=== PATIENT | male | born 1990 | race Hispanic/Latino ===

== ENCOUNTER 2024-04-11 12:27 | Emergency (ER) | payer MEDICAID ==
[~2024-04-11] VITALS: Ht 167.6 cm; Wt 88.9 kg
[2024-04-11 13:44] LABS: BASOPHILS # (AUTO) 0.04 K/uL (0.00-0.20); BASOPHILS % (AUTO) 0.6 % (0.0-5.0); EOSINOPHILS # (AUTO) 0.33 K/uL (0.00-0.70); EOSINOPHILS % (AUTO) 4.9 % (0.0-8.0); HEMATOCRIT 21.9 % (42-54); IMMATURE GRANULOCYTE ABSOLUTE 0.01 K/uL (0-1); LYMPHOCYTES # (AUTO) 1.6 K/uL (1.0-4.8); LYMPHOCYTES % (AUTO) 23.5 % (21.0-51.0); MEAN CORPUSCULAR HEMOGLOBIN 31.1 pg (27.0-33.0); MEAN CORPUSCULAR HGB CONC 33.8 g/dL (32.0-36.0); MONOCYTES # (AUTO) 0.4 K/uL (0.1-1.0); MONOCYTES % (AUTO) 6.2 % (3.0-13.0); NEUTROPHILS # (AUTO) 4.4 K/uL (1.8-7.7); NEUTROPHILS % (AUTO) 64.7 % (40.0-77.0); PLATELET COUNT (AUTO) 179 K/uL (130-400); RED BLOOD CELL COUNT(AUTO) 2.38 MIL/uL (4.50-6.20); RED CELL DISTRIBUTION WIDTH 13.3 % (11.0-15.5); WHITE BLOOD COUNT (AUTO) 6.7 K/uL (4.8-10.8)
[2024-04-11 13:57] LABS: ALBUMIN 3.5 g/dL (3.5-5.0); BILIRUBIN,TOTAL 0.2 mg/dL (0.2-1.0); POTASSIUM 4.8 mmol/L (3.5-5.1); TOTAL PROTEIN, SERUM 6.7 g/dL (6.0-8.3)
[2024-04-11 14:00] LABS: CREATININE 11.5 mg/dL (0.5-1.3)
[2024-04-11 15:31] VITALS: BP 152/93; PULSE 87; RESP 18; O2SAT 100
== END 2024-04-11 15:33 | disposition home or self-care (01) ==
LOC: EDH 12:27
DX: N18.6 End stage renal disease (principal); N18.9 Chronic kidney disease, unspecified; D63.1 Anemia in chronic kidney disease; Z99.2 Dependence on renal dialysis; R73.9 Hyperglycemia, unspecified
CPT/HCPCS: 36415; 80053; 85025; 86850; 86900; 86901; 93005